=== PATIENT | male | born 1945 | race Caucasian/White ===

== ENCOUNTER 2016-07-29 22:17 | Observation (INO) | payer MEDICARE ==
[~2016-07-29] VITALS: Ht 170.2 cm; Wt 90.0 kg
[2016-07-29 22:18] VITALS: BP 160/96; PULSE 85; RESP 18; TEMP 98.5; O2SAT 99
--- NOTE | 2016-07-29 22:30 | PD ---
Physical Exam Date Seen by Provider: Jul 29, 2016 Time Seen by Provider: 22:26 Data Data Last Documented VS Vital Signs Date Time Temp Pulse Resp B/P Pulse Ox O2 Delivery O2 Flow Rate FiO2 07/29/16 22:18 98.5 85 18 160/96 99 Room Air MDM Supervised Visit with GENNY: No Narrative Course 71 YO M with complaint of "several month" history of dizziness. States that he "blacks out and drops." Endorses syncopal episode with fall ~3-4pm today. SOB, TOUSSAINT this afternoon. History of HTN, colon cancer. 15-18 beers daily. Vitals reviewed. Awaiting bed placement. Corinna Hough Jul 29, 2016 22:30
[2016-07-29] MEDS ORDERED: ATEN100T PO (22:33)
[2016-07-29] MEDS ORDERED: MECL12.574 PO (22:39)
[2016-07-29] MEDS ORDERED: FOLI1TAB6 (22:39)
[2016-07-29] MEDS ORDERED: BENA20TA PO (22:39)
[2016-07-29] MEDS ORDERED: POTA-163 PO (22:39)
[2016-07-29] MEDS ORDERED: HYDR-3133 PO (22:39)
[2016-07-29] MEDS ORDERED: SODI1TAB PO (22:39)
[2016-07-29 22:55] VITALS: BP 140/79; PULSE 82; RESP 18; O2SAT 96
[2016-07-29 23:00] VITALS: BP 153/74; RESP 18
[2016-07-29 23:01] VITALS: BP 153/73; RESP 18
[2016-07-29 23:02] VITALS: BP 109/61; RESP 18
[2016-07-29] MEDS ORDERED: SODIUM CHLORIDE 0.9% FLUSH 10 ML FLUSH IVF PRN (23:45)
[2016-07-29] MEDS ORDERED: THIAMINE INJ 100 MG in SODIUM CHLORIDE 0.9% INJ 100 ML IV ONE (23:45)
[2016-07-30] VITALS (17 sets, daily range): BP systolic 123–179; BP diastolic 67–98; PULSE 63–82; RESP 16–18; TEMP 98.1–98.6; O2SAT 93–100
--- NOTE | 2016-07-30 00:03 | RADRPT ---
EXAM DATE/TIME: 07/29/2016 23:35 [facility] COMPARISON: No previous studies available for comparison. INDICATIONS : Pt has had dizziness for months, today felt dizzy and fell with LOC. MEDICAL HISTORY : Hypertension. Carcinoma, colon. SURGICAL HISTORY : colostomy ENCOUNTER: Initial ACUITY: 1 day PAIN SCORE: 7/10 LOCATION: Bilateral chest FINDINGS: Patchy atelectasis seen of the visualized lung bases, right more so than left. No perceptible effusio n. No pneumothorax. Heart size within normal limits. No mediastinal widening demonstrated. CONCLUSION: Bibasilar atelectasis. Blade Raya MD on July 30, 2016 at 0:01 Board Certified Radiologist. This report was verified electronically.
[2016-07-30 00:14] LABS: AUTOMATED NEUTROPHIL # 7.2 TH/MM3 (1.8-7.7); BASOPHIL % 0.3 % (0.0-2.0); EOSINOPHIL # 0.2 TH/MM3 (0-0.4); EOSINOPHIL % 1.8 % (0.0-4.0); HEMATOCRIT 37.3 % (39.0-51.0); HEMO FLAGS DIFF FINAL; LYMPH % 9.6 % (9.0-44.0); LYMPHOCYTE # 0.9 TH/MM3 (1.0-4.8); MEAN CELL VOLUME 102.9 FL (80.0-100.0); MEAN CORPUSCULAR HEMOGLOBIN 36.6 PG (27.0-34.0); MEAN CORPUSCULAR HGB CONC 35.5 % (32.0-36.0); MONO % 7.8 % (0.0-8.0); NEUT % 80.5 % (16.0-70.0); PLATELET COUNT 204 TH/MM3 (150-450); RED BLOOD COUNT 3.63 MIL/MM3 (4.50-5.90); RED CELL DISTRIBUTION WIDTH 12.2 % (11.6-17.2)
[2016-07-30 00:25] LABS: BACTERIA, URINE RARE /hpf; BLOOD, URINE MOD (NEG); COMMENT (UR) CULT NOT INDICATED; CULTURE IF INDICATED CULT NOT INDICATED; GLUCOSE,URINE NEG (NEG); KETONE, URINE NEG (NEG); NITRITE,URINE NEG (NEG); SQUAMOUS EPITHELIAL CELL URINE <1 /hpf (0-5); URINE COLOR LIGHT-YELLOW (YELLW/STRAW)
[2016-07-30 00:28] LABS: ANION GAP 12 MEQ/L (5-15); AST (GOT) 23 U/L (15-37); BLOOD UREA NITROGEN 12 MG/DL (7-18); CHLORIDE 103 MEQ/L (98-107); GLOMERULAR FILTRATION RATE 52 ML/MIN (>89); POTASSIUM 3.8 MEQ/L (3.5-5.1); SODIUM (NA) 138 MEQ/L (136-145)
[2016-07-30 00:29] LABS: ALT (GPT) 24 U/L (12-78)
--- NOTE | 2016-07-30 00:30 | RADRPT ---
EXAM DATE/TIME: 07/30/2016 00:12 [facility] COMPARISON: No previous studies available for comparison. INDICATIONS : Dizziness. Patient fell and hit back of head. RADIATION DOSE: 36.51 CTDIvol (mGy) MEDICAL HISTORY : Carcinoma, colon. SURGICAL HISTORY : None. ENCOUNTER: Initial ACUITY: 1 day PAIN SCALE: 7/10 LOCATION: cranial TECHNIQUE: Multiple contiguous axial images were obtained of the head. Using automated exposure control and adj ustment of the mA and/or kV according to patient size, radiation dose was kept as low as reasonably a chievable to obtain optimal diagnostic quality images. FINDINGS: CEREBRUM: The ventricles are normal for age. No evidence of midline shift, mass lesion, hemorrhage or acute in farction. No extra-axial fluid collections are seen. POSTERIOR FOSSA: The cerebellum and brainstem are intact. The 4th ventricle is midline. The cerebellopontine angle i s unremarkable. EXTRACRANIAL: The visualized portion of the orbits is intact. SKULL: The calvaria is intact. No evidence of skull fracture. CONCLUSION: Negative noncontrast head CT. No bleed or other acute intracranial abnormality. Blade Raya MD on July 30, 2016 at 0:28 Board Certified Radiologist. This report was verified electronically.
[2016-07-30 00:33] LABS: ALKALINE PHOSPHATASE 83 U/L (45-117); CREATINE KINASE 460 U/L (39-308); TOTAL BILIRUBIN ADULT 0.7 MG/DL (0.2-1.0)
--- NOTE | 2016-07-30 00:33 | RADRPT ---
EXAM DATE/TIME: 07/30/2016 00:12 [facility] COMPARISON: No previous studies available for comparison. INDICATIONS : Trauma, fall. Neck pain. RADIATION DOSE: 21.26 CTDIvol (mGy) MEDICAL HISTORY : None SURGICAL HISTORY : None. ENCOUNTER: Initial ACUITY: 1 day PAIN SCALE: 3/10 LOCATION: neck TECHNIQUE: Volumetric scanning of the cervical spine was performed. Multiplanar reconstructions in the sagittal, coronal and oblique axial planes were performed. Using automated exposure control and adjustment o f the mA and/or kV according to patient size, radiation dose was kept as low as reasonably achievable to obtain optimal diagnostic quality images. FINDINGS: Grade 1 degenerative appearing retrolisthesis seen at C5/C6. There is severe C5/C6 and C6/C7 disc spa ce narrowing with chronic endplate changes and uncovertebral and facet osteoarthritis. Bilateral fora juliet stenosis seen at C5/C6. No fracture or acute appearing malalignment demonstrated. Vertebral bodies have normal height. Mild d isc space narrowing at C2/C3, C3/C4 and C4/C5, each level with mild to moderate bilateral uncovertebr al and facet osteoarthritis. Mild left foraminal stenosis at the C3/C4 and C4/C5. Juxtavertebral soft tissues are within normal limits. CONCLUSION: No fracture or acute appearing malalignment of the cervical spine. Multilevel degenerative changes as above and associated grade 1 degenerative appearing retrolisthesis at C5/C6. Blade Raya MD on July 30, 2016 at 0:29 Board Certified Radiologist. This report was verified electronically.
[2016-07-30 00:50] LABS: CKMB 1.2 NG/ML (0.5-3.6)
--- NOTE | 2016-07-30 01:10 | PD ---
HPI Chief Complaint: Dizziness Time Seen by Provider: 23:26 Travel History International Travel<30 days: No Contact w/Intl Traveler<30days: No Traveled to known affect area: No History of Present Illness HPI Patient is a 71-year-old male presents emergency department for evaluation of a syncopal episode. Patient is a coming by his daughter. They state that they were on the beach today and they did have a couple of beers. His daughter went to the bathroom and when she returned to the bathroom bystanders said that the patient was walking and then suddenly collapsed and fell backwards impacting his head on the posterior aspect on the cement. She states the bystanders said that his head bounced off the ground. She states that first degree relative has had a history of aneurysm in the head. The patient has discussed that he has had multiple syncopal episodes with his primary care provider over the past 6-8 months. He does state that he drinks every day and his daughter says is probably excessive. He denies any chest pain or shortness of breath. He describes palpitations as well. Denies any neck pain abdominal pain extremity pain currently. PFSH Past Medical History Cancer: Yes (COLON CA 2007) Diminished Hearing: No Tetanus Vaccination: > 5 Years Past Surgical History Other Surgery: Yes (COLOSTOMY ) Social History Alcohol Use: Yes (EVERYDAY 12-18BEERS ) Tobacco Use: No Substance Use: No Allergies-Medications (Allergen,Severity, Reaction): Coded Allergies: No Known Allergies (Unverified , 07/29/16) Reported Meds & Prescriptions Reported Meds & Active Scripts Active Reported Sodium Chloride 1 Gm Tab 1 Gm PO DAILY Meclizine (Meclizine HCl) 12.5 Mg Tab 12.5 Mg PO TID PRN Potassium Chloride ER (Potassium Chloride) 20 Meq Tab 20 Meq PO BID Folic Acid 1 Mg Tablet Hydroxyzine HCl 25 Mg Tab 25 Mg PO QID Benazepril (Benazepril HCl) 20 Mg Tab 20 Mg PO DAILY Atenolol 100 Mg Tab 100 Mg PO DAILY Review of Systems Except as stated in HPI: all other systems reviewed are Neg Physical Exam Narrative GENERAL: Well-developed well-nourished no apparent distress SKIN: Areas of pallor on his skin consistent with vitiligo. HEAD: Atraumatic. Normocephalic. EYES: Pupils equal and round. No scleral icterus. No injection or drainage. ENT: No nasal bleeding or discharge. Mucous membranes pink and moist. NECK: Trachea midline. No JVD. CARDIOVASCULAR: Regular rate and rhythm. No murmur appreciated. 2+ bilateral equal pulses in all 4 extremity's. RESPIRATORY: No accessory muscle use. Clear to auscultation. Breath sounds equal bilaterally. GASTROINTESTINAL: Abdomen soft, non-tender, nondistended. Hepatic and splenic margins not palpable. MUSCULOSKELETAL: No obvious deformities. No clubbing. No cyanosis. No edema. NEUROLOGICAL: Awake and alert. Cranial nerves II through XII are grossly intact and nonfocal, 5 out of 5 strength in all 4 extremity's. PSYCHIATRIC: Appropriate mood and affect; insight and judgment normal. Data Data Last Documented VS Vital Signs Date Time Temp Pulse Resp B/P Pulse Ox O2 Delivery O2 Flow Rate FiO2 07/30/16 00:21 77 18 148/75 99 Room Air 07/29/16 22:18 98.5 Orders Electrocardiogram (07/29/16 23:37) Complete Blood Count With Diff (07/29/16 23:37) Comprehensive Metabolic Panel (07/29/16 23:37) Ckmb (Isoenzyme) Profile (07/29/16 23:37) Troponin I (07/29/16 23:37) Urinalysis - C+S If Indicated (07/29/16 23:37) Chest, Single Ap (07/29/16 23:37) Ct Brain W/O Iv Contrast(Rout) (07/29/16 23:37) Ct Cerv Spine W/O Contrast (07/29/16 23:37) Ecg Monitoring (07/29/16 23:37) Iv Access Insert/Monitor (07/29/16 23:37) Oximetry (07/29/16 23:37) Sodium Chloride 0.9% Flush (Ns Flush) (07/29/16 23:45) Alcohol (Ethanol) (07/29/16 23:37) Thiamine Inj (Thiamine Inj) (07/29/16 23:45) CKMB (07/29/16 23:50) CKMB% (07/29/16 23:50) Admit Order (Ed Use Only) (07/30/16 ) Labs Laboratory Tests Test 07/29/16 07/29/16 23:50 23:55 White Blood Count 9.0 TH/MM3 Red Blood Count 3.63 MIL/MM3 Hemoglobin 13.3 GM/DL Hematocrit 37.3 % Mean Corpuscular Volume 102.9 FL Mean Corpuscular Hemoglobin 36.6 PG Mean Corpuscular Hemoglobin 35.5 % Concent Red Cell Distribution Width 12.2 % Platelet Count 204 TH/MM3 Mean Platelet Volume 7.2 FL Neutrophils (%) (Auto) 80.5 % Lymphocytes (%) (Auto) 9.6 % Monocytes (%) (Auto) 7.8 % Eosinophils (%) (Auto) 1.8 % Basophils (%) (Auto) 0.3 % Neutrophils # (Auto) 7.2 TH/MM3 Lymphocytes # (Auto) 0.9 TH/MM3 Monocytes # (Auto) 0.7 TH/MM3 Eosinophils # (Auto) 0.2 TH/MM3 Basophils # (Auto) 0.0 TH/MM3 CBC Comment DIFF FINAL Differential Comment Sodium Level 138 MEQ/L Potassium Level 3.8 MEQ/L Chloride Level 103 MEQ/L Carbon Dioxide Level 23.0 MEQ/L Anion Gap 12 MEQ/L Blood Urea Nitrogen 12 MG/DL Creatinine 1.34 MG/DL Estimat Glomerular Filtration 52 ML/MIN Rate Random Glucose 115 MG/DL Calcium Level 8.7 MG/DL Total Bilirubin 0.7 MG/DL Aspartate Amino Transf 23 U/L (AST/SGOT) Alanine Aminotransferase 24 U/L (ALT/SGPT) Alkaline Phosphatase 83 U/L Total Creatine Kinase 460 U/L Creatine Kinase MB 1.2 NG/ML Creatine Kinase MB % 0.3 % Troponin I LESS THAN 0.02 NG/ML Total Protein 7.4 GM/DL Albumin 3.4 GM/DL Ethyl Alcohol Level 31 MG/DL Urine Color LIGHT-YELLOW Urine Turbidity CLEAR Urine pH 6.0 Urine Specific [place] 1.004 Urine Protein 30 mg/dL Urine Glucose (UA) NEG mg/dL Urine Ketones NEG mg/dL Urine Occult Blood MOD Urine Nitrite NEG Urine Bilirubin NEG Urine Urobilinogen LESS THAN 2.0 MG/DL Urine Leukocyte Esterase NEG Urine RBC 35 /hpf Urine WBC 2 /hpf Urine Squamous Epithelial <1 /hpf Cells Urine Bacteria RARE /hpf Microscopic Urinalysis Comment CULT NOT INDICATED MDM Medical Decision Making Medical Screen Exam Complete: Yes Emergency Medical Condition: Yes Interpretation(s) EKG shows sinus rhythm with borderline first-degree heart block with ME interval of 185. PACs noted, no concerning ST segment changes. Intervals otherwise within normal limits. This borderline EKG. Differential Diagnosis Syncope, ACS, AMI, head injury, neck injury, electrolyte abnormality, alcoholism , Wernicke's encephalopathy. Narrative Course Patient was roomed in emergency department, his blood work is consistent with does show macrocytic indices consistent with chronic alcoholism, chemistry is fairly reassuring, total CK is mainly elevated at 460, troponin negative, UA negative, ethanol alcohol is 31. Patient was given thiamine IV, there may be a component of alcoholic encephalopathy. CT head was negative CT neck was negative. Discussed with the patient that there are concerns for his repeated syncopal episodes and that he needs to cut back on his alcohol ingestion. I did discuss with his primary care physician Dr. Alvarez who agrees for observation status and cardiology consult. These recommendations were passed on to Dr. Velazquez who placed in observation status Diagnosis Primary Impression: Syncope Qualified Code: R55 - Syncope, unspecified syncope type Admitting Information Admitting Physician Requests: Observation Condition: Stable Sergey Lora MD Jul 30, 2016 01:09
--- NOTE | 2016-07-30 07:20 | PD.CONS ---
HPI Service CV Consult Requested By Reason for Consult syncope Primary Care Physician Cyrus (Evan) MD Antonio History of Present Illness Here with HTN and h/o colon cancer for syncope. He had a witnessed syncopal episode while at the beach. He state he has has 3 episodes of syncope in the last month. He says that he can feel it starting. He states it feels as if his entire body becomes numb. He has been monitored for palpitations in the past but nothing significant was ever found. He denies chest pain, shortness of breath or palpitations. He c/o vertigo this morning. (Juancarlos Engel) Review of Systems Consitutional: DENIES: Fatigue, Fever, Chills, Weight gain, Weight loss Eyes: DENIES: Amaurosis Fugax, Change in vision HEENT: DENIES: Lightheadedness, Change in hearing Respiratory: DENIES: See HPI, Cough, Snoring, Shortness of breath, Wheezing, Sputum production Cardiovascular: COMPLAINS OF: See HPI Gastrointestinal: DENIES: Nausea, Vomiting, Change in bowel habits, Reflux, Bloody stools, Melena Genitourinary: DENIES: Urinary incontinence, Difficulty voiding Integumentary: DENIES: Rash Neurologic: DENIES: Tingling or numbness, Memory problems, Poor Balance, Stroke symptoms Musculoskeletal: DENIES: Joint pain, Muscle pain, Limited range of motion, Back pain Psychiatric: DENIES: Anxiety, Depression, Sleep disturbances Hematologic: DENIES: Bruising tendencies, Bleeding tendencies Endocrine: DENIES: Weight gain, Weight loss, Thyroid disease (Juancarlos Engel ) Past Family Social History Allergies: Coded Allergies: No Known Allergies (Unverified , 07/29/16) Past Medical History see HPI Past Surgical History colostomy Reported Medications Reported Meds & Active Scripts Active Reported Sodium Chloride 1 Gm Tab 1 Gm PO DAILY Meclizine (Meclizine HCl) 12.5 Mg Tab 12.5 Mg PO TID PRN Potassium Chloride ER (Potassium Chloride) 20 Meq Tab 20 Meq PO BID Folic Acid 1 Mg Tablet Hydroxyzine HCl 25 Mg Tab 25 Mg PO QID Benazepril (Benazepril HCl) 20 Mg Tab 20 Mg PO DAILY Atenolol 100 Mg Tab 100 Mg PO DAILY Active Ordered Medications Current Medications Medications (Trade) Dose Ordered Sig/Bacilio Route Start Time Stop Time Status Last Admin (NS Flush) 2 ml UNSCH PRN IVF 07/29/16 23:45 (Tenormin) 100 mg DAILY PO 07/30/16 09:00 (Prinivil) 20 mg DAILY PO 07/30/16 09:00 (Atarax) 25 mg QID PO 07/30/16 09:00 (Vitamin B1) 100 mg DAILY PO 07/30/16 09:00 (Folate) 1 mg DAILY PO 07/30/16 09:00 Family History noncontributory Social History drinks 12 to 18 beers daily quit smoking 37 years ago denies substance abuse (Juancarlos Engel) Physical Exam Vital Signs Vital Signs Date Time Temp Pulse Resp B/P Pulse Ox O2 Delivery O2 Flow Rate FiO2 07/30/16 04:13 98.1 77 16 142/79 93 07/30/16 03:30 82 07/30/16 02:28 71 18 147/80 96 Room Air 07/30/16 00:21 77 18 148/75 99 Room Air 07/29/16 23:02 86 18 109/61 07/29/16 23:01 82 18 153/73 07/29/16 23:00 79 18 153/74 07/29/16 22:55 82 18 140/79 96 Room Air 07/29/16 22:18 98.5 85 18 160/96 99 Room Air Physical Exam GENERAL: Well-nourished, well-developed patient in no apparent distress. NECK: No JVD. No carotid bruit. CARDIOVASCULAR: Regularly irregular S1/S2 no murmur, rub, or gallop. RESPIRATORY: No accessory muscle use. Clear to auscultation. Breath sounds equal bilaterally. GASTROINTESTINAL: Abdomen soft, non-tender, nondistended. MUSCULOSKELETAL: Extremities without clubbing, cyanosis, or edema. Laboratory Laboratory Tests Test 07/29/16 07/29/16 23:50 23:55 White Blood Count 9.0 Red Blood Count 3.63 Hemoglobin 13.3 Hematocrit 37.3 Mean Corpuscular Volume 102.9 Mean Corpuscular Hemoglobin 36.6 Mean Corpuscular Hemoglobin 35.5 Concent Red Cell Distribution Width 12.2 Platelet Count 204 Mean Platelet Volume 7.2 Neutrophils (%) (Auto) 80.5 Lymphocytes (%) (Auto) 9.6 Monocytes (%) (Auto) 7.8 Eosinophils (%) (Auto) 1.8 Basophils (%) (Auto) 0.3 Neutrophils # (Auto) 7.2 Lymphocytes # (Auto) 0.9 Monocytes # (Auto) 0.7 Eosinophils # (Auto) 0.2 Basophils # (Auto) 0.0 CBC Comment DIFF FINAL Differential Comment Sodium Level 138 Potassium Level 3.8 Chloride Level 103 Carbon Dioxide Level 23.0 Anion Gap 12 Blood Urea Nitrogen 12 Creatinine 1.34 Estimat Glomerular Filtration 52 Rate Random Glucose 115 Calcium Level 8.7 Total Bilirubin 0.7 Aspartate Amino Transf 23 (AST/SGOT) Alanine Aminotransferase 24 (ALT/SGPT) Alkaline Phosphatase 83 Total Creatine Kinase 460 Creatine Kinase MB 1.2 Creatine Kinase MB % 0.3 Troponin I LESS THAN 0.02 Total Protein 7.4 Albumin 3.4 Ethyl Alcohol Level 31 Urine Color LIGHT-YELLOW Urine Turbidity CLEAR Urine pH 6.0 Urine Specific [place] 1.004 Urine Protein 30 Urine Glucose (UA) NEG Urine Ketones NEG Urine Occult Blood MOD Urine Nitrite NEG Urine Bilirubin NEG Urine Urobilinogen LESS THAN 2.0 Urine Leukocyte Esterase NEG Urine RBC 35 Urine WBC 2 Urine Squamous Epithelial <1 Cells Urine Bacteria RARE Microscopic Urinalysis Comment CULT NOT INDICATED (Juancarlos Engel) Result Diagram: 07/29/16 2350 07/29/16 2350 Assessment and Plan Problem List: (1) Syncope Assessment and Plan Review of telemetry shows bigeminy. There have been no events on telemetry. He has been given Thiamine. Continue to monitor telemetry and get a 2D echo ( Juancarlos Engel) Assessment and Plan await 2d echo if echo unremarkable, the he will need 21 day outpatient event monitor. he can call my office and have it set up next week. no driving until etiology resolved. (Jim Leonard MD) Problem Qualifiers (1) Syncope: Qualified Code: R55 - Syncope, unspecified syncope type Juancarlos Engel Jul 30, 2016 07:20 Jim Leonard MD Jul 30, 2016 11:43
--- NOTE | 2016-07-30 08:56 | MH ---
cc: JANETH FULLER DATE OF ADMISSION 07/30/2016 DATE OF ARRIVAL 07/29/2016 DATE OF 1945 CHIEF COMPLAINT Dizziness and syncopal episode. HISTORY OF PRESENT ILLNESS This is a pleasant 71-year-old white male who is been in his usual state of health up until the past month. The patient notes approximately one month ago, he had an acute onset of a dizzy spells to where everything was spinning round him and passed out for an undisclosed amount of time. He noted these same type of symptoms two weeks ago when he was down in the beach area with the same symptoms and syncope. He went to see his PCP, Dr. Alvarez this past Tuesday which was three days ago and told him about the dizziness and the syncope. He states that he had an EKG which was normal in the office, but no further testing had been done since then. Yesterday, the patient was with some with his family down on the beach and according to the record, the patient's daughter went to the bathroom and when she got back there were people standing around with her father who was lying on the sand. The bystanders stated that he felt very hard and hit his head. According to the record, it was noted some syncopal episodes for the past 6-8 months, but the patient stated two in the past month. The patient denies any shortness of breath. Denies any chest pain. No headaches. No nausea, vomiting, diarrhea or constipation. The patient does have a functioning colostomy and takes his medication routinely. He is a daily alcohol consumer, but other than that, has been in fairly good health. PAST MEDICAL HISTORY 1. Colon cancer in 2007 2. Hypertension PAST SURGICAL HISTORY Colonoscopy ALLERGIES No known. MEDICATIONS Medications reported include: 1. Salt tablet 2. Meclizine used to p.r.n. 3. Potassium tablets 4. Folic acid 5. Hydroxyzine 6. Benazepril 7. Atenolol SOCIAL HISTORY The patient is single, currently lives with his daughter. He was a tobacco user until the 80s and quit smoking then. He is a daily alcohol consumer of 12-18 beers a day. The patient does state that he drinks too much sometimes. No illicit drugs. REVIEW OF SYSTEMS Positives noted in the HPI which is his current syncopal episodes, daily alcohol consumption, dizziness and spinning to where the environment is spinning around him. Otherwise, the review of systems are negative or unremarkable. PHYSICAL EXAM VITAL SIGNS: Temperature is 98.1, pulse 72-77, respirations 16, blood pressure 142/79, lowest blood pressure noted was at 2300 last night 109/61, pulse ox 93-99 on room air. GENERAL: A well-nourished, well-developed elderly male looks to be his stated age resting in the bed. He is alert, oriented and a fair historian. SKIN: [place] mucous membranes, warm and dry. There is some psoriasis noted predominantly on his extremities upper and lower. He does have vitiligo on both arms. HEENT: Atraumatic, normocephalic. ANANAY at 2. No drainage from his mucous membranes or oral cavity. No scleral icterus. Tongue is midline. NECK: Supple. Trachea is midline. CARDIOVASCULAR: S1-S2, regular rhythm with some occasional irregular audible beats felt and heard. Soft systolic murmur grade 2/6 at the left sternal border. RESPIRATORY: Essentially clear to auscultation anteriorly and posteriorly with no wheezes, rales or rhonchi. He does have some decreased lung sounds bibasilar. GI: Abdomen is round, soft, nontender, nondistended. He does have an active colostomy with light brown yellow stools. MUSCULOSKELETAL: He moves his extremities with purpose. No obvious deformities. No edema. Pulses are intact. NEUROLOGIC: He is alert, awake, a fair historian to his history. Equal hand regional recruiter. PSYCHIATRIC: Mood and affect appropriate for now. DIAGNOSTIC DATA WBC count 9, RBC 3.63, hemoglobin 13.3, hematocrit 37.3, MCH 36.6, MCV 102.9, neutrophil percentage count 80.5, lymphocyte auto count 0.9. Chemistry sodium 138, potassium 3.8, chloride 103, carbon dioxide 23, amnion gap 12, BUN 12, creatinine 1.34, GFR 52, random glucose 115. Other abnormal are total creatinine kinase 460, troponin is negative at 0.02, albumin 3.4, total protein 7.4. Toxicology shows alcohol level 31. Urine is light yellow and clear. The pH is 6, specific gravity is 1.004, protein is 30, moderate amount of occult blood, negative for glucose, ketones, nitrites, bilirubin and leukocyte esterase, rare bacteria. Culture is not indicated. IMAGING STUDIES Cervical spine CT to have some degenerative disk disease, multilevel, grade 1 degenerative appearing retrolisthesis at C5-C6, but no fracture or acute malalignment of the cervical spine. Chest x-ray bibasilar atelectasis. Head CT negative noncontrast. No bleeding or acute abnormality. ASSESSMENT/PLAN 1. Vertigo with the environment spinning. 2. ETOH abuse 3. Acute kidney injury 4. Mild hyperglycemia in the presence of non-diabetes 5. Degenerative disk disease PLAN Admit for observation. We will monitor his vital signs q4 and as needed. We will reconcile his medications, start him on thiamine, folic acid and consult cardiology for their expert opinion. We will get an ultrasound of his carotids, 2-D echo, air sampling and monitoring which currently shows a sinus rhythm with occasional PVCs. We will continue ECG monitoring. We will monitor him for any withdrawal from his alcohol and medications as needed. The patient is full code, full aggressive care and we will continue to follow. We will give him DVT prophylaxis with heparin and we will do PUD prophylaxis with Pepcid. Dictated by LUIS Uribe MD NEWTON Hutchinson/MARCELINA /8:05 AM /8:31 AM
[2016-07-30] MEDS: HEPARIN SODIUM - SQ 10,000 UNITS/ML VIAL SQ SCH ×2 (09:10→22:27)
[2016-07-30] MEDS: ATENOLOL 100 MG TAB PO SCH (09:10)
[2016-07-30] MEDS: hydrOXYzine HCL 25 MG TAB PO SCH ×4 (09:10→22:24)
[2016-07-30] MEDS: LISINOPRIL 20 MG TAB PO SCH (09:10)
[2016-07-30] MEDS: FOLIC ACID 1 MG TAB PO SCH (09:10)
[2016-07-30] MEDS: THIAMINE HCL 100 MG TAB PO SCH (09:10)
--- NOTE | 2016-07-30 10:18 | RADRPT ---
EXAM DATE/TIME: 07/30/2016 09:11 [facility] COMPARISON: No previous studies available for comparison. INDICATIONS : Syncope. MEDICAL HISTORY : Carcinoma, colon. SURGICAL HISTORY : Colostomy. ENCOUNTER: Initial ACUITY: 1 day PAIN SCORE: 2/10 LOCATION: Bilateral neck PEAK SYSTOLIC VELOCITIES (cm/sec): ICA/CCA RATIO: Right: 0.9 Left: 1.2 ICA: Right: 83 Left: 100 CCA: Right: 95 Left: 108 ECA: Right: 74 Left: 79 VERTEBRAL: Right: 57 antegrade Left: 28 antegrade Elevated flow velocities and ICA/CCA ratios have been found to correlate with increased degrees of vessel stenosis, calculated as percentage of diameter relative to a normal segment of distal ICA/CCA FINDINGS: RIGHT CAROTID: Mild calcified plaque involving the carotid bulb with noncalcified plaque involving the proximal ICA. No significant stenosis is visualized. The waveforms are within normal limits. LEFT CAROTID: Minimal plaque. No significant stenosis is visualized. The waveforms are within normal limits. VERTEBRAL ARTERIES: Antegrade flow is seen in both vertebral arteries. MISCELLANEOUS: None. CONCLUSION: 1. Patent carotid arteries bilaterally. 2. Antegrade flow involving both vertebral arteries. Naldo Teague Jr., MD on July 30, 2016 at 10:06 Board Certified Radiologist. This report was verified electronically.
--- NOTE | 2016-07-30 11:54 | ECHRPT ---
Indication: Syncope and collapse CONCLUSIONS Normal left ventricular size. Wall thickness is measured at the upper limits of normal. The left ventricular systolic function is normal with an estimated ejection fraction in the range of 60-65%no regional wall motion abnormalities are present. Kruwl-aa-ngey mitral valve regurgitation. Mild aortic valve regurgitation. There is mild tricuspid valve regurgitation. There is estimated mild pulmonary hypertension present (range 40-50 mmHg). BP: 148 / 75 HR: 77 Rhythm: PVCs MEASUREMENTS (Male / Female) Normal Values Technical Quality:Good 2D ECHO LV Diastolic Diameter PLAX 4.8 cm 4.2 - 5.9 / 3.9 - 5.3 cm LV Systolic Diameter PLAX 3.5 cm IVS Diastolic Thickness 1.5 cm 0.6 - 1.0 / 0.6 - 0.9 cm LVPW Diastolic Thickness 1.0 cm 0.6 - 1.0 / 0.6 - 0.9 cm LV Relative Wall Thickness 0.5 RV Internal Dim ED PLAX 2.8 cm M-MODE Aortic Root Diameter MM 2.8 cm LA Systolic Diameter MM 4.3 cm LA Ao Ratio MM 1.5 AV Cusp Separation MM 2.4 cm DOPPLER Mitral E Point Velocity 61.7 cm/s Mitral A Point Velocity 70.1 cm/s Mitral E to A Ratio 0.9 LV E' Lateral Velocity 9.7 cm/s Mitral E to LV E' Lateral Ratio 6.4 LV E' Septal Velocity 6.7 cm/s Mitral E to LV E' Septal Ratio 9.2 TR Peak Velocity 312.0 cm/s TR Peak Gradient 38.9 mmHg FINDINGS LEFT VENTRICLE Normal left ventricular size. Wall thickness is measured at the upper limits of normal. The left ventricular systolic function is normal with an estimated ejection fraction in the range of 60-65%no regional wall motion abnormalities are present. Left ventricular diastolic function parameters are normal. MITRAL VALVE [id number]-[id number] mitral valve regurgitation. AORTIC VALVE Mild aortic valve regurgitation. TRICUSPID VALVE There is mild tricuspid valve regurgitation. There is estimated mild pulmonary hypertension present (range 40-50 mmHg). Aba Davey MD (Electronically Signed) Final Date:30 July 2016 11:54
--- NOTE | 2016-07-30 12:36 | HHI.PR ---
Objective Objective Results - Vital Signs Date Time Temp Pulse Resp B/P Pulse Ox O2 Delivery O2 Flow Rate FiO2 07/30/16 12:31 68 164/83 07/30/16 11:10 98.5 68 18 126/71 96 07/30/16 10:09 139/89 07/30/16 08:02 98.2 65 18 172/79 95 07/30/16 08:00 75 07/30/16 04:13 98.1 77 16 142/79 93 07/30/16 03:30 82 07/30/16 02:28 71 18 147/80 96 Room Air 07/30/16 00:21 77 18 148/75 99 Room Air 07/29/16 23:02 86 18 109/61 07/29/16 23:01 82 18 153/73 07/29/16 23:00 79 18 153/74 07/29/16 22:55 82 18 140/79 96 Room Air 07/29/16 22:18 98.5 85 18 160/96 99 Room Air Result Diagram: 07/29/16 2350 07/29/16 2350 Other Results Laboratory Tests Test 07/29/16 07/29/16 23:50 23:55 White Blood Count 9.0 Red Blood Count 3.63 Hemoglobin 13.3 Hematocrit 37.3 Mean Corpuscular Volume 102.9 Mean Corpuscular Hemoglobin 36.6 Mean Corpuscular Hemoglobin 35.5 Concent Red Cell Distribution Width 12.2 Platelet Count 204 Mean Platelet Volume 7.2 Neutrophils (%) (Auto) 80.5 Lymphocytes (%) (Auto) 9.6 Monocytes (%) (Auto) 7.8 Eosinophils (%) (Auto) 1.8 Basophils (%) (Auto) 0.3 Neutrophils # (Auto) 7.2 Lymphocytes # (Auto) 0.9 Monocytes # (Auto) 0.7 Eosinophils # (Auto) 0.2 Basophils # (Auto) 0.0 CBC Comment DIFF FINAL Differential Comment Sodium Level 138 Potassium Level 3.8 Chloride Level 103 Carbon Dioxide Level 23.0 Anion Gap 12 Blood Urea Nitrogen 12 Creatinine 1.34 Estimat Glomerular Filtration 52 Rate Random Glucose 115 Calcium Level 8.7 Total Bilirubin 0.7 Aspartate Amino Transf 23 (AST/SGOT) Alanine Aminotransferase 24 (ALT/SGPT) Alkaline Phosphatase 83 Total Creatine Kinase 460 Creatine Kinase MB 1.2 Creatine Kinase MB % 0.3 Troponin I LESS THAN 0.02 Total Protein 7.4 Albumin 3.4 Ethyl Alcohol Level 31 Urine Color LIGHT-YELLOW Urine Turbidity CLEAR Urine pH 6.0 Urine Specific [place] 1.004 Urine Protein 30 Urine Glucose (UA) NEG Urine Ketones NEG Urine Occult Blood MOD Urine Nitrite NEG Urine Bilirubin NEG Urine Urobilinogen LESS THAN 2.0 Urine Leukocyte Esterase NEG Urine RBC 35 Urine WBC 2 Urine Squamous Epithelial <1 Cells Urine Bacteria RARE Microscopic Urinalysis Comment CULT NOT INDICATED Physical Exam Physical Exam PHYSICAL EXAMINATION GENERAL: This is a well-developed, well-nourished male who appears to be in no acute distress. He is alert and awake, []. HEAD: Normocephalic without any lesion or mass noted. Facial features appear symmetric. EYES: Perrla, Normal eye movement, [] Icterus. [] Conj congestion. OROPHARYNGEAL: Oropharynx without erythema or edema. MOUTH/THROAT: Tongue midline []. Buccal mucosa is moist []. NECK: Supple. No nuchal rigidity or lymphadenopathy. Trachea midline without deviation. Thyroid not palpable, no bruits appreciated. CARDIAC: Regular rhythm, regular rate, S1 and S2 are heard. Murmur []; no gallops or rubs. LUNGS: Clear to auscultation bilaterally. [] wheeze, [] rhonchi or [] rale. No use of accessory muscles on inspiration or expiration. ABDOMEN: Soft, nontender, no organomegaly or masses. Bowel sounds are heard in all four quadrants. No rebound. No guarding. EXTREMITIES: [] edema. Pulses equal bilateral. [] cyanosis. NEUROLOGICAL: Patient mood and affect appropriate. Cranial nerves II through XII grossly intact. Muscle strength 5/5 in the upper and lower extremities bilaterally. Deep tendon reflexes are 2+ in the upper and lower extremities bilaterally. SKIN:Warm and moist PSYCH: Mood and affect appropriate A/P Assessment and Plan patient seen and examined Please refer to admission H & P for details dizziness, syncope, vertigo Alcohol abuse elevated creatinine tele orthostatic vitals echo Pending Appreciate Cardiology input, may need holter/loop monitor PT eval u/s carotid neG CT C spine neg thiamine folic acid, PRN librium CIWA protocol I/v fluids recheck BMP in am plan of care discussed with patient and daughter at bedside discussed with nursing staff discussed with Suzette Mclain MD Jul 30, 2016 12:36
[2016-07-30] MEDS ORDERED: FLUMAZENIL 0.5 MG/5 ML VIAL IV PUSH PRN (12:45)
[2016-07-30] MEDS ORDERED: LORazepam 2 MG TAB PO PRN (12:45)
[2016-07-30] MEDS ORDERED: LORazepam 2 MG/ML VIAL IV PUSH PRN ×4 (12:45)
[2016-07-30] MEDS ORDERED: LORazepam 1 MG TAB PO PRN (12:45)
[2016-07-30] MEDS: SODIUM CHLOR 0.9% 1000 ML INJ 1,000 ML IV SCH (14:26)
--- NOTE | 2016-07-30 17:34 | EKG ---
Date Performed: 07/29/2016 Time Performed: 23:17:26 PTAGE: 71 years EKG: Sinus rhythm WITH OCCASIONAL SUPRAVENTRICULAR PREMATURE COMPLEXES BORDERLINE ECG NO PREVIOUS TRACING DOCTOR: Casey Palafox Interpretating Date/Time 07/30/2016 17:33:55
[2016-07-30] MEDS ORDERED: PILL SPLITTER OTHER PRN (21:00)
[2016-07-30] MEDS: FAMOTIDINE 20 MG TAB PO SCH (22:25)
[2016-07-31 00:53] LABS: ANION GAP 6 MEQ/L (5-15); BICARBONATE 28.8 MEQ/L (21.0-32.0); BLOOD UREA NITROGEN 18 MG/DL (7-18); CHLORIDE 104 MEQ/L (98-107); GLOMERULAR FILTRATION RATE 47 ML/MIN (>89); POTASSIUM 3.9 MEQ/L (3.5-5.1); SODIUM (NA) 139 MEQ/L (136-145)
[2016-07-31 01:22] VITALS: BP 170/83
[2016-07-31 04:55] VITALS: BP_SYST 163; BP_SYST 177; BP_DIAS 77; BP_DIAS 81; PULSE 69; RESP 18; TEMP 98.5; O2SAT 96
[2016-07-31 07:50] LABS: AUTOMATED NEUTROPHIL # 5.1 TH/MM3 (1.8-7.7); BASOPHIL % 0.3 % (0.0-2.0); EOSINOPHIL # 0.3 TH/MM3 (0-0.4); EOSINOPHIL % 3.7 % (0.0-4.0); HEMATOCRIT 37.2 % (39.0-51.0); HEMO FLAGS DIFF FINAL; LYMPH % 13.2 % (9.0-44.0); LYMPHOCYTE # 0.9 TH/MM3 (1.0-4.8); MEAN CELL VOLUME 104.2 FL (80.0-100.0); MEAN CORPUSCULAR HEMOGLOBIN 36.2 PG (27.0-34.0); MEAN CORPUSCULAR HGB CONC 34.7 % (32.0-36.0); MONO % 11.3 % (0.0-8.0); NEUT % 71.5 % (16.0-70.0); PLATELET COUNT 177 TH/MM3 (150-450); RED BLOOD COUNT 3.57 MIL/MM3 (4.50-5.90); RED CELL DISTRIBUTION WIDTH 12.2 % (11.6-17.2); WHITE BLOOD COUNT 7.1 TH/MM3 (4.0-11.0)
[2016-07-31 08:03] VITALS: BP 189/96; PULSE 70; RESP 18; TEMP 96.8; O2SAT 96
[2016-07-31] MEDS: hydrOXYzine HCL 25 MG TAB PO SCH (08:09)
[2016-07-31] MEDS: FOLIC ACID 1 MG TAB PO SCH (08:09)
[2016-07-31] MEDS: THIAMINE HCL 100 MG TAB PO SCH (08:09)
[2016-07-31 08:10] VITALS: PULSE 77
[2016-07-31] MEDS: FAMOTIDINE 20 MG TAB PO SCH (08:10)
[2016-07-31] MEDS: SODIUM CHLOR 0.9% 1000 ML INJ 1,000 ML IV SCH (08:10)
[2016-07-31] MEDS: LISINOPRIL 20 MG TAB PO SCH (08:10)
[2016-07-31] MEDS: HEPARIN SODIUM - SQ 10,000 UNITS/ML VIAL SQ SCH (08:10)
[2016-07-31] MEDS: ATENOLOL 100 MG TAB PO SCH (08:10)
--- NOTE | 2016-07-31 08:43 | HHI.PR ---
Subjective Remarks Awake alert No acute anxiety or restlessness Resting in bed Afebrile No further syncopal episodes (Aysha Hinton) Objective Objective Results - Vital Signs Date Time Temp Pulse Resp B/P Pulse Ox O2 Delivery O2 Flow Rate FiO2 07/31/16 08:03 96.8 70 18 189/96 96 07/31/16 04:55 98.5 69 18 177/81 96 163/77 07/31/16 01:22 170/83 07/30/16 23:54 98.5 70 18 168/98 96 07/30/16 23:48 178/83 07/30/16 23:00 69 07/30/16 20:00 69 07/30/16 19:49 98.1 63 18 150/73 96 07/30/16 15:46 98.6 69 18 149/67 100 07/30/16 15:00 70 07/30/16 12:33 123/81 123/77 07/30/16 12:31 68 164/83 07/30/16 11:10 98.5 68 18 126/71 96 07/30/16 10:09 139/89 I/O 07/30/16 07/30/16 07/30/16 07/31/16 07/31/16 07/31/16 07:00 15:00 23:00 07:00 15:00 23:00 Intake Total 100 ml 240 ml Balance 100 ml 240 ml Intake Oral 240 ml IV Total 100 ml # Voids 2 2 # Bowel Movements 1 (Aysha Hinton) Result Diagram: 07/31/16 0711 07/31/16 0022 ROS General: Weakness (generalized), Other (10 point ROS done positives noted other systems negative or unremarkable) Pulmonary: SOB GI: BM (normal BM's per colostomy) /COOPERATIVE EXTENSION AGENT: Other (colostomy draining, bag intact) Neuro/MS: Confusion, Headache (none), Lightheaded (none), Tremors (none) ( Aysha Hinton) Physical Exam Physical Exam PHYSICAL EXAMINATION GENERAL: This is a well-developed, well-nourished elderly male who appears to be in no acute distress. He is alert and awake, HEAD: Normocephalic traumatic OROPHARYNGEAL: Oropharynx without erythema or edema. NECK: Supple. Trachea midline without deviation. CARDIAC: Regular rhythm, regular rate, S1 and S2 are heard. Murmur soft at left sternal border LUNGS: Clear to auscultation bilaterally. ABDOMEN: Soft, nontender, active bowel sounds, ostomy in right quadrant with normal consistency of stool EXTREMITIES: None edema. Pulses equal bilateral. NEUROLOGICAL: Patient mood and affect appropriate. Tongue is midline speech is clear SKIN:Warm and moist, dry Objective Remarks I'm feeling better this morning and not having any further dizziness now ( Aysha Hinton) A/P Assessment and Plan ASSESSMENT/PLAN 1. Vertigo with the environment spinning. 2. ETOH abuse 3. Acute kidney injury 4. Mild hyperglycemia in the presence of non-diabetes 5. Degenerative disk disease Vital signs reviewed BP 177/81, needs consistent monitoring for any uncontrolled hypertension. When necessary medications ordered if systolic is 180 or greater. Labs reviewed, anemia of mild, probably secondary to EtOH, chronic disease Vertigo, pt had mild vertigo when first arriving to hospital, but has not noticed any more dizziness in the last 12 hrs. patient did get up and ambulate out and valderrama with nurse this past p.m. and denied any symptoms of dizziness, vertigo, generalized weakness, or shortness of breath. Patient has negative troponins, no acute CT noted. Echocardiogram done EF 60-65 % with some multi-valvular regurg noted carotid studies negative. Recommendations for 21 day event monitor to be placed on patient and follow-up with cardiology as an outpatient. EtOH abuse, patient admits to be in a heavy daily consumer of alcohol and wants to look at cutting back majorly on his alcohol intake. We discussed in detail the weaning of alcohol in the importance of not trying to do it cold turkey. We discussed the complications of DTs, discussed good nutritional status, and maintaining his quality of life. Acute kidney injury, still mildly elevated at 1.46, patient is urinating Brandon clear urine large amount seen in the urinal. Encouraged by mouth intake with water and nonsugar drinks. Mild hyperglycemia noted on admission. Coverage patient to follow blood sugars and labs with his PCP as an outpatient Discussed in detail with patient Discussed with nurse Discussed with Dr. us, seen on his behalf Discharge planning possibly today if event monitor can be placed on patient. Encourage patient to ambulate again today with staff to evaluate for any further vertigo or dizzy spells, or syncope (Aysha Hinton) Assessment and Plan pt is seen & examined d/w PT & his d.w Aysha BP control CAROTID US/ECHO NOTED Dr Leonard , rec Event monitoring/he will arrange from his office No driving till clearance from cardiology d/c home see MRS see Orders f/u pcp f/u CARD (Nicko Us MD) Aysha Hinton Jul 31, 2016 08:43 Nicko Us MD Jul 31, 2016 11:20
[2016-07-31] MEDS ORDERED: AMLO5 PO (11:23)
[2016-07-31] MEDS ORDERED: amLODIPine BESYLATE 5 MG TAB PO ONE (11:30)
[2016-08-01] MEDS ORDERED: amLODIPine BESYLATE 5 MG TAB PO SCH (09:00)
== END 2016-07-31 11:57 | disposition home or self-care (01) ==
LOC: NEPC 22:17 → NEDA 07-30 02:07 → NEPHCDU 07-30 03:28
PROVIDERS: ADMIT Internal Medicine; ATTEND Internal Medicine
DX: R42 Dizziness and giddiness (principal); R55 Syncope and collapse; I10 Essential (primary) hypertension; N17.9 Acute kidney failure, unspecified; R73.9 Hyperglycemia, unspecified; M50.322 Other cervical disc degeneration at C5-C6 level; D64.9 Anemia, unspecified; R79.89 Other specified abnormal findings of blood chemistry; F10.10 Alcohol abuse, uncomplicated; Z85.038 Personal history of other malignant neoplasm of large intestine; Z87.891 Personal history of nicotine dependence; Z93.3 Colostomy status
CPT/HCPCS: 70450; 71010; 72125; 80048; 80053; 80307; 81001; 82550; 82552; 84484; 85025; 93005; 93306; 93880; 96361; 96372; 96374; 97162; 99285; G0378; G8987; G8988; J1644; J3411; J7030